=== PATIENT | male | born 1975 | race African-American/Black ===

== ENCOUNTER 2016-04-23 03:41 | Emergency (ER) ==
[2016-04-23] MEDS ORDERED: ATIVAN ONE (03:47)
[2016-04-23] MEDS ORDERED: NORCURON ONE (03:48)
[2016-04-23] MEDS ORDERED: VERSED ONE (03:48)
[2016-04-23] MEDS ORDERED: STERILE WATER INJ. ONE (03:49)
[2016-04-23] MEDS: DIPRIVAN 1% 100 ML IV SCH ×7 (03:50→06:49)
--- NOTE | 2016-04-23 03:55 | PROVIDER DOCUMENTATION ---
HPI-Neurological Disorder - General Source: EMS - History of Present Illness-Neuro Onset/Duration: reports: unsure Timing: reports: still present Context: reports: found unresponsive by family, seizure activity Character of Altered Mental Status: reports: unresponsive, seizure activity Associated Symptoms: reports: muscle spasms, seizures Similar Symptoms Previously?: Yes - Seizure First time to have a seizure?: No Witnessed seizure?: No Episode details: reports: unknown duration, unknown number Episode Frequency: chronic episodes Status Epilepticus: Yes Character of Seizure: reports: generalized shaking all over, staring, incontinent of urine, incontinent of stool <Kashif Rice - Last Filed: 04/23/16 04:03> <Tyson Rodarte - Last Filed: 04/23/16 20:16> - General Chief Complaint: Seizure Stated Complaint: seizure Time Seen by Provider: 04/23/16 03:41 Allergies/Adverse Reactions: Patient Allergies Allergy/AdvReac Type Severity Reaction Status Date / Time iodine Allergy Severe RASH Verified 04/23/16 04:24 shellfish derived Allergy Unknown Verified 04/23/16 04:24 Home Medications: Ketorolac [Toradol] 10 mg PO Q6H PRN 04/23/16 Lacosamide [Vimpat] 200 mg PO HS 04/23/16 Lisinopril/Hydrochlorothiazide [Lisinopril-Hctz 20-12.5 mg Tab] 1 each PO DAILY 04/23/16 Tizanidine HCl [Zanaflex] 4 mg PO Q6H 04/23/16 - History of Present Illness-Neuro Nature of Presenting Problem: Pt is a 40 yom who presents to ER via EMS with CC of seizure like activities. Per EMS, pt's found pt in bed having a seizure. Pt was unresponsive, convulsing, and rigid and was found incontinent of stool and urine. Pt has hx of seizures, and does not know what time pt started having these symptoms tonight. (Kashif Rice) Review of Systems - Adult - REVIEW OF SYSTEMS - ADULT ROS:: unobtainable per condition Constitutional: reports: no symptoms reported Eyes: reports: no symptoms reported Ears, Nose, Mouth & Throat: reports: no symptoms reported Cardiovascular: reports: no symptoms reported Respiratory: reports: no symptoms reported Gastrointestinal: reports: no symptoms reported Genitourinary: reports: no symptoms reported Musculoskeletal: reports: no symptoms reported Integumentary: reports: no symptoms reported Neurological: reports: no symptoms reported Psychiatric: reports: no symptoms reported Endocrine: reports: no symptoms reported Hematologic/Lymphatic: reports: no symptoms reported Allergic/Immunologic: reports: no symptoms reported All Other Systems: Reviewed and Negative <Kashif Rice - Last Filed: 04/23/16 04:03> Past History - Adult - PAST MEDICAL HISTORY-ADULT Review of Records: reports: Nursing Assessment Review, Medications Reviewed Neurological: reports: headaches/migraines, past injury, Seizures/Epilepsy, spinal cord/brain injury (brain) - PRIOR SURGERIES/PROCEDURES Surgical/Procedure History: reports: other (brain surgery) - IMMUNIZATION STATUS Childhood Immunizations: See Nurse Assessment Flu Vaccine: See Nurse Assessment <Kashif Rice - Last Filed: 04/23/16 04:03> Physical Exam- Neurological - Physical Exam-Neuro Initial Vital Signs Reviewed: Yes General Appearance: severe distress Integumentary: diaphoresis <Kashif Rice - Last Filed: 04/23/16 04:03> - Physical Exam-Neuro General Appearance: other (unresponsive, actively seizing with leftward gaze) Eye Exam: bilateral eye: PERRL HENMT: moist mucous membranes Head Injury: no evidence of injury Neck: supple Respiratory: decreased breath sounds, other (breath sounds equal) Cardiovascular: tachycardia Abdominal Exam: soft Extremity: other (no deformities) Neurologic: other (nonfocal) Integumentary: normal turgor - Glascow Coma Scale Best Eye Response: (1) no response Best Verbal Response: (1) no verbal response Best Motor Response: (1) no motor response Total Glascow Score: 3 <Tyson Rodarte - Last Filed: 04/23/16 20:16> Progress <Kashif Rice - Last Filed: 04/23/16 04:03> - CT/MRI 1 CT Study: Head (anoxic brain injury with diffuse edema, no bleed) <Tyson Rodarte - Last Filed: 04/23/16 20:16> - PLAN OF CARE/RESULTS Progress/Plan/Lab Results: Laboratory Results - last 24 hr 04/23/16 04/23/16 04/23/16 03:40 03:40 03:40 WBC 19.08 H RBC 5.00 Hgb 14.3 Hct 42.3 MCV 84.6 MCH 28.6 MCHC 33.8 RDW Std Deviation 13.8 Plt Count 346 MPV 10.3 Immature Gran % (Auto) 0.4 Neut % (Auto) 63.6 Lymph % (Auto) 26.4 [place] % (Auto) 9.0 Eos % (Auto) 0.5 Baso % (Auto) 0.1 Immature Gran # (Auto) 0.07 H Neut # (Auto) 12.15 H Lymph # (Auto) 5.04 H [place] # (Auto) 1.71 H Eos # (Auto) 0.09 Baso # (Auto) 0.02 Specimen Type Sample Site pH pCO2 pO2 HCO3 Base Excess Oxyhemoglobin ABG O2 Sat (Calculated) ABG O2 Saturation ABG Carboxyhemoglobin ABG Methemoglobin Rush Test A-a O2 Difference Total Hemoglobin Lactate Blood Gas Modality Spontaneous Rate FiO2 % Tidal Volume PEEP Sodium 143 Potassium 3.6 Chloride 102 Carbon Dioxide 26 Anion Gap 15 BUN 14 Creatinine 1.1 Estimated GFR/1.73 m2 > 60 BUN/Creatinine Ratio 13 Glucose 177 H POC Glucose Calculated Osmolality 290 Calcium 9.0 Magnesium 1.8 Total Bilirubin 0.29 AST 22 ALT 10 Alkaline Phosphatase 64 Total Protein 7.3 Albumin 4.2 Globulin 3.1 Albumin/Globulin Ratio 1.4 Urine Source Urine Color Urine Turbidity Urine pH Ur Specific [place] Urine Protein Ur Glucose (Stick) Ur Ketones (Stick) Urine Blood Urine Nitrite Urine Bilirubin Urobilinogen Dipstick Urine Leukocytes Urine WBC (Auto) Urine RBC (Auto) U Epithel Cells (Auto) Urine Bacteria (Auto) Urine Opiates Screen Ur Oxycodone Screen Ur Methadone, Qual Ur Barbiturates Screen Ur Phencyclidine Scrn Ur Amphetamines Screen U Benzodiazepines Scrn Urine Cocaine Screen U Cannabinoids Screen Plasma/Serum Ethyl Alc 04/23/16 04/23/16 04/23/16 03:40 03:40 04:00 WBC RBC Hgb Hct MCV MCH MCHC RDW Std Deviation Plt Count MPV Immature Gran % (Auto) Neut % (Auto) Lymph % (Auto) [place] % (Auto) Eos % (Auto) Baso % (Auto) Immature Gran # (Auto) Neut # (Auto) Lymph # (Auto) [place] # (Auto) Eos # (Auto) Baso # (Auto) Specimen Type Sample Site pH pCO2 pO2 HCO3 Base Excess Oxyhemoglobin ABG O2 Sat (Calculated) ABG O2 Saturation ABG Carboxyhemoglobin ABG Methemoglobin Rush Test A-a O2 Difference Total Hemoglobin Lactate Blood Gas Modality Spontaneous Rate FiO2 % Tidal Volume PEEP Sodium Potassium Chloride Carbon Dioxide Anion Gap BUN Creatinine Estimated GFR/1.73 m2 BUN/Creatinine Ratio Glucose POC Glucose 127 H Calculated Osmolality Calcium Magnesium Total Bilirubin AST ALT Alkaline Phosphatase Total Protein Albumin Globulin Albumin/Globulin Ratio Urine Source CATH Urine Color YELLOW Urine Turbidity CLEAR Urine pH 6.0 Ur Specific [place] 1.016 Urine Protein TRACE A Ur Glucose (Stick) NEGATIVE Ur Ketones (Stick) NEGATIVE Urine Blood TRACE A Urine Nitrite NEGATIVE Urine Bilirubin NEGATIVE Urobilinogen Dipstick NORMAL Urine Leukocytes TRACE A Urine WBC (Auto) <10 Urine RBC (Auto) <10 U Epithel Cells (Auto) <10 Urine Bacteria (Auto) NEGATIVE Urine Opiates Screen NONE DETECTED Ur Oxycodone Screen NONE DETECTED Ur Methadone, Qual NONE DETECTED Ur Barbiturates Screen NONE DETECTED Ur Phencyclidine Scrn NONE DETECTED Ur Amphetamines Screen NONE DETECTED U Benzodiazepines Scrn NONE DETECTED Urine Cocaine Screen NONE DETECTED U Cannabinoids Screen PRESUMPTIVE POSITIVE A Plasma/Serum Ethyl Alc 04/23/16 04:56 WBC RBC Hgb Hct MCV MCH MCHC RDW Std Deviation Plt Count MPV Immature Gran % (Auto) Neut % (Auto) Lymph % (Auto) [place] % (Auto) Eos % (Auto) Baso % (Auto) Immature Gran # (Auto) Neut # (Auto) Lymph # (Auto) [place] # (Auto) Eos # (Auto) Baso # (Auto) Specimen Type ARTERIAL Sample Site R RADIAL pH 7.33 L pCO2 48 H pO2 146 H HCO3 24.0 Base Excess -1.1 Oxyhemoglobin 95.2 ABG O2 Sat (Calculated) 17.0 ABG O2 Saturation 96.1 ABG Carboxyhemoglobin 0.90 ABG Methemoglobin 0.0 Rush Test YES A-a O2 Difference 222.0 Total Hemoglobin 12.5 Lactate 0.50 Blood Gas Modality VENTILATOR Spontaneous Rate 14 FiO2 % 60.0 Tidal Volume 550 PEEP 5.0 Sodium Potassium Chloride Carbon Dioxide Anion Gap BUN Creatinine Estimated GFR/1.73 m2 BUN/Creatinine Ratio Glucose POC Glucose Calculated Osmolality Calcium Magnesium Total Bilirubin AST ALT Alkaline Phosphatase Total Protein Albumin Globulin Albumin/Globulin Ratio Urine Source Urine Color Urine Turbidity Urine pH Ur Specific [place] Urine Protein Ur Glucose (Stick) Ur Ketones (Stick) Urine Blood Urine Nitrite Urine Bilirubin Urobilinogen Dipstick Urine Leukocytes Urine WBC (Auto) Urine RBC (Auto) U Epithel Cells (Auto) Urine Bacteria (Auto) Urine Opiates Screen Ur Oxycodone Screen Ur Methadone, Qual Ur Barbiturates Screen Ur Phencyclidine Scrn Ur Amphetamines Screen U Benzodiazepines Scrn Urine Cocaine Screen U Cannabinoids Screen Plasma/Serum Ethyl Alc (Tyson Rodarte) Procedures - INTUBATION Airway Evaluation: Copious Secretions Mallampati Class: 2 Intubation Method: orotracheal Equipment: ETT, Bougie Tube Size (cm): 7.5 Pretreated with 100% Oxygen?: Yes Breath Sounds after Intubation: equal ETT Primary Tube Confirmation: Capnometry CO2 Change, Direct Visualization, Chest Rise and Fall, Tube placement verified on XRAY Intubation Complications: no complications Vent Settings: See Respiratory Therapy Notes <Tyson Rodarte - Last Filed: 04/23/16 20:16> Departure <Kashif Rice - Last Filed: 04/23/16 04:03> - Departure Time of Disposition Order: 06:45 Certified Medical Emergency: Emergent - Critical Care Note Total Time (mins): 145 Critical Care Statement: This patient required my direct personal management to treat or rule out processes, the absence of which, could potentiallly result in sudden, clinically significant life or limb threatening deterioration. <Tyson Rodarte - Last Filed: 04/23/16 20:16> - Departure DIAGNOSIS: Status epilepticus, Anoxic brain damage, Brain edema Disposition: [facility] Condition: Critical Referrals: None,PCP [Primary Care Provider] - Attestation - Scribe Verification/Attestation Scribe:: Kashif Rice Acting as Scribe for:: Tyson Rodarte Scribe documention review:: This chart was documented by a scribe and accurately reflects the service the provider performed and the decisions made by the provider. <Kashif Rice - Last Filed: 04/23/16 04:03> Physician Attestation
[2016-04-23] MEDS ORDERED: KEPPRA 1,000 MG in NS 100 ML IV ONE (04:01)
[2016-04-23] MEDS ORDERED: DIPRIVAN 1% 100 ML ONE (04:01)
[2016-04-23] MEDS ORDERED: DIPRIVAN 1% IV ONE (04:02)
[2016-04-23] MEDS ORDERED: NORCURON IV ONE ×2 (04:07→04:21)
[2016-04-23] MEDS ORDERED: NS 1,000 ML ONE (04:10)
[2016-04-23] MEDS ORDERED: VERSED IV ONE ×2 (04:21→05:23)
[2016-04-23] MEDS ORDERED: ATIVAN IV ONE ×2 (04:22)
[2016-04-23 04:26] LABS: MANUAL DIFF NEEDED? NO; URINE MICRO REVIEW NEEDED? NO; URINE SOURCE CATH
[2016-04-23 04:38] LABS: BILIRUBIN URINE NEGATIVE (NEGATIVE); BLOOD URINE TRACE (NEGATIVE); COLOR YELLOW; GLUCOSE URINE NEGATIVE (NEGATIVE); LEUKOCYTES URINE TRACE (NEGATIVE); NITRITE URINE NEGATIVE (NEGATIVE); PROTEIN URINE TRACE mg/dL (NEGATIVE); SP GRAVITY URINE 1.016; TURBIDITY URINE CLEAR (CLEAR); UROBILINOGEN URINE NORMAL (NORMAL)
[2016-04-23 04:39] LABS: UR EPITHELIAL CELLS <10 /HPF (<10); URINE BACTERIA NEGATIVE /HPF; URINE CULTURE NEEDED? YES; URINE RBC <10 /HPF (<10); URINE WBC <10 /HPF (<10)
[2016-04-23 04:42] LABS: BASO% 0.1 % (0.0-0.8); EOS# 0.09 X1000 (0.0-0.7); EOS% 0.5 % (0.0-10.0); HEMATOCRIT 42.3 % (42.0-52.0); HEMOGLOBIN 14.3 g/dL (14.0-18.0); IMM GRAN# 0.07 X1000 (0.0-0.04); IMM GRAN% 0.4 % (0.0-0.5); LYMPH# 5.04 X1000 (1.2-3.4); LYMPH% 26.4 % (20.5-51.1); MCH 28.6 PG (27-31); MCHC 33.8 g/dL (33-37); MCV 84.6 FL (81-99); MONO# 1.71 X1000 (0.11-0.59); MPV 10.3 FL (7.4-10.4); NEUT% 63.6 % (42.2-75.2); PLT 346 X1000 (130-400)
[2016-04-23 04:57] LABS: AGAP 15; ALBUMIN 4.2 g/dL (3.5-5.0); ALKALINE PHOSPHATASE 64 U/L (32-122); BUN 14 mg/dL (8-22); CHLORIDE 102 mmol/L (98-107); COSMO 290; GOT 22 U/L (10-34); GPT 10 U/L (10-44); MAGNESIUM 1.8 mg/dL (1.5-2.7); POTASSIUM 3.6 mmol/L (3.5-5.1); SODIUM 143 mmol/L (136-145); TCO2 26 mmol/L (25-35); TOTAL BILIRUBIN 0.29 mg/dL (0.20-1.00); TOTAL PROTEIN 7.3 g/dL (6.3-8.3)
[2016-04-23 04:59] LABS: ALLEN TEST YES; BE -1.1 mmoll (-3.0-3.0); BLOOD TYPE ARTERIAL; DRAW SITE R RADIAL; PCO2(98.6) 48 mmHg (35-45); PO2(98.6) 146 mmHg (60-100); SAMPLE BLOOD; SAO2 96.1 % (95.0-100.0); SRATE 14 BPM; THB 12.5 g/dL (11.5-17.4); TVOL 550 mL; pH(98.6) 7.33 (7.35-7.45)
[2016-04-23 05:00] LABS: MODALITY VENTILATOR
[2016-04-23 05:08] LABS: UR AMPHETAMINES QUAL NONE DETECTED (NONE DETECT); UR BARBITUATES QUAL NONE DETECTED (NONE DETECT); UR BENZODIAZEPIN QUAL NONE DETECTED (NONE DETECT); UR CANNABINOIDS QUAL PRESUMPTIVE POSITIVE (NONE DETECT); UR COCAINE QUAL NONE DETECTED (NONE DETECT); UR METHADONE QUAL NONE DETECTED (NONE DETECT); UR OPIATES QUAL NONE DETECTED (NONE DETECT); UR OXYCODONE QUAL NONE DETECTED (NONE DETECT); UR PCP QUAL NONE DETECTED (NONE DETECT)
[2016-04-23 05:47] VITALS: BP 124/81
--- NOTE | 2016-04-23 10:45 | Diag Imaging Result Document ---
PROCEDURE NAME: HEAD W/O CONTRAST - 04/23/2016 CT HEAD WITHOUT CONTRAST: COMPARISON: 11/19/2015. FINDINGS: There is bifrontal encephalomalacia underlying a craniotomy defect, stable. There is no discrete intracranial mass, mass effect, or intracranial hemorrhage. There is no evidence of hydrocephalus. There is nothing by CT that would suggest cerebral edema when compared to the previous study. There is no evidence of acute infarct. There are paranasal sinus air-fluid levels, assumed to be related to recent intubation. Surrounding soft tissues and bony structures are essentially unremarkable, otherwise. IMPRESSION: Stable chronic changes as described with no definite acute intracranial pathology by CT.
--- NOTE | 2016-04-23 11:44 | Diag Imaging Result Document ---
PROCEDURE NAME: CHEST-PORTABLE - 04/23/2016 SINGLE FRONTAL RADIOGRAPH OF THE CHEST: COMPARISON: 11/19/2015. FINDINGS: There is a newly placed ET tube. The tip projects over the trachea and above the y[place] at approximately the T3 level. The lungs are grossly clear, otherwise. There is no definite pleural fluid collection. Cardiac silhouette and central vasculature are grossly unremarkable. IMPRESSION: Placement of ET tube as described. No definite acute pathology, otherwise.
--- NOTE | 2016-04-23 11:56 | Diag Imaging Result Document ---
PROCEDURE NAME: CHEST/ABD TUBE PLACEMENT - 04/23/2016 SINGLE FRONTAL RADIOGRAPH OF THE LOWER CHEST AND UPPER ABDOMEN: COMPARISON: Chest radiograph dated 04/23/2016. FINDINGS: There has been interval placement of an NG tube. The tip projects below the diaphragm and is assumed to be in lumen of the stomach in expected position. Limited views of the chest are grossly stable when compared to the very recent radiograph. IMPRESSION: Interval placement of NG tube as described. [facility]
--- NOTE | 2016-04-25 06:18 | EKG Report ---
Test Performed on : 04/23/2016 03:45:14 AM Test Reason : SEIZURE Blood Pressure : / mmHG Vent. Rate : 086 BPM Atrial Rate : 086 BPM P-R Int : 116 ms QRS Dur : 100 ms QT Int : 340 ms P-R-T Axes : 020 054 012 degrees QTc Int : 406 ms Sinus rhythm. with premature supraventricular complexes. and with occasional premature ventricular co mplexes. Possible Inferior infarct (cited on or before 23-APR-2016) Abnormal ECG When compared with ECG of 23-APR-2016 03:44, (Unconfirmed) Previous ECG has undetermined rhythm, needs review Questionable change in initial forces of Inferior leads ST now depressed in Lateral leads Unconfirmed Result
== END 2016-04-23 06:47 | disposition short-term general hospital (02) ==
LOC: ED 03:41
DX: G40.901 Epilepsy, unspecified, not intractable, with status epilepticus (principal); G93.1 Anoxic brain damage, not elsewhere classified; G93.6 Cerebral edema; M62.838 Other muscle spasm; R32 Unspecified urinary incontinence; R00.0 Tachycardia, unspecified; Z79.899 Other long term (current) drug therapy
CPT/HCPCS: 70450; 71010; 74000; 80053; 81001; 82805; 82948; 83735; 85025; 87070; 87077; 87088; 87186; 87205; 93005; 96374; 96375; 96376; G0480; J1953; J2060; J2250; J7030

== ENCOUNTER 2016-08-16 22:16 | Inpatient (IN) ==
[2016-08-16] MEDS ORDERED: NS 1,000 ML ONE (22:17)
[2016-08-16] MEDS ORDERED: KEPPRA 1,000 MG in NS 100 ML IV ONE (22:25)
[2016-08-16 22:34] LABS: MANUAL DIFF NEEDED? NO
[2016-08-16] MEDS ORDERED: ATIVAN ONE (22:34)
[2016-08-16 22:43] LABS: BASO% 0.3 % (0.0-0.8); EOS# 0.14 X1000 (0.0-0.7); EOS% 2.3 % (0.0-10.0); HEMATOCRIT 40.9 % (42.0-52.0); LYMPH# 3.13 X1000 (1.2-3.4); LYMPH% 52.5 % (20.5-51.1); MCH 29.2 PG (27-31); MCHC 34.2 g/dL (33-37); MCV 85.4 FL (81-99); MONO# 0.51 X1000 (0.11-0.59); MONO% 8.6 % (1.7-9.3); MPV 10.2 FL (7.4-10.4); NEUT% 36.3 % (42.2-75.2); PLT 222 X1000 (130-400); RBC 4.79 XMIL (4.7-6.1)
[2016-08-16] MEDS ORDERED: NS 1,000 ML IV ONE (22:43)
[2016-08-16] MEDS ORDERED: ATIVAN IV ONE (22:51)
[2016-08-16 22:52] LABS: AGAP 11; ALBUMIN 3.8 g/dL (3.5-5.0); ALKALINE PHOSPHATASE 50 U/L (32-122); BUN 11 mg/dL (8-22); CHLORIDE 107 mmol/L (98-107); COSMO 284; GOT 27 U/L (10-34); GPT 15 U/L (10-44); POTASSIUM 4.4 mmol/L (3.5-5.1); SODIUM 143 mmol/L (136-145); TCO2 25 mmol/L (25-35); TOTAL BILIRUBIN 0.17 mg/dL (0.20-1.00); TOTAL PROTEIN 6.3 g/dL (6.3-8.3)
--- NOTE | 2016-08-17 00:26 | PROVIDER DOCUMENTATION ---
This chart was entered by Jessie Lin Scribe, acting as scribe for David Ward MD. HPI-Neurological Disorder - General Chief Complaint: Seizure Stated Complaint: seizure Time Seen by Provider: 08/16/16 22:22 Source: EMS Allergies/Adverse Reactions: Patient Allergies Allergy/AdvReac Type Severity Reaction Status Date / Time iodine Allergy Severe RASH Verified 08/16/16 22:51 shellfish derived Allergy Unknown Verified 08/16/16 22:51 Home Medications: Home Medication List Medication Instructions Recorded Confirmed Last Taken Type Divalproex E.r. [Depakote ER] 1,000 mg PO BID #0 tablet 10/09/14 08/16/16 20:00 Rx Levetiracetam [Keppra] 1,500 mg PO BID #0 tablet 10/09/14 08/16/16 11/18/15 20: 00 Rx Lacosamide [Vimpat] 200 mg PO HS 04/23/16 08/16/16 Unknown History Lisinopril/Hydrochlorothiazide 1 each PO DAILY 04/23/16 08/16/16 Unknown History [Lisinopril-Hctz 20-12.5 mg Tab] Tizanidine HCl [Zanaflex] 4 mg PO Q6H 04/23/16 08/16/16 Unknown History - History of Present Illness-Neuro Nature of Presenting Problem: 41 Y/O M presents to ED with Seizure. Pt was brought in by EMS. EMS states that he has a hx of seizure as stated by family, and didn't take meds today. Family states he had a 5 min seizure at home, and EMS states he had a 3 min seizure on arrival to ED.Medical noncompliance, combative in ED. Valium given by EMS. Severity: reports: severe Onset/Duration: reports: this evening Timing: reports: still present Context: reports: seizure activity Character of Altered Mental Status: reports: combative Any recent trauma/injury?: reports: none New weakness or altered sensation location:: reports: none Gait Baseline: walks without assistance Associated Symptoms: reports: seizures Similar Symptoms Previously?: Yes - Seizure First time to have a seizure?: No Witnessed seizure?: Yes How many seizure episodes?: 2 Duration of episode? (mins): 8 (in total 5 mins at home and 3 mins in ED ) Episode Frequency: chronic episodes Preceding symptoms/context:: missed recent doses of seizure meds Character of Seizure: reports: generalized shaking all over Post-ictal Symptoms: reports: other (combative) Seizure related injury: none Review of Systems - Adult - REVIEW OF SYSTEMS - ADULT Constitutional: denies: chills, fever Eyes: reports: no symptoms reported Ears, Nose, Mouth & Throat: reports: no symptoms reported Cardiovascular: reports: no symptoms reported Respiratory: reports: no symptoms reported Gastrointestinal: reports: no symptoms reported Genitourinary: reports: no symptoms reported Musculoskeletal: reports: no symptoms reported Integumentary: reports: no symptoms reported Neurological: reports: seizure. denies: dizziness/vertigo Psychiatric: reports: no symptoms reported Endocrine: reports: no symptoms reported Hematologic/Lymphatic: reports: no symptoms reported Allergic/Immunologic: reports: no symptoms reported All Other Systems: Reviewed and Negative Past History - Adult - PAST MEDICAL HISTORY-ADULT Review of Records: reports: Old Records Reviewed, Nursing Assessment Review, Medications Reviewed, Social history reviewed & non-contributory. Major Childhood Illnesses: reports: denies history Cardiovascular: reports: denies history Respiratory: reports: denies history Gastrointestinal: reports: denies history Obstetrical/Gynecological: reports: denies history Genitourinary: reports: denies history Musculoskeletal: reports: denies history Neurological: reports: headaches/migraines, past injury, Seizures/Epilepsy, spinal cord/brain injury (brain) Endocrine/Immune: reports: denies history Other Conditions: reports: denies history - PRIOR SURGERIES/PROCEDURES Surgical/Procedure History: reports: other (brain surgery) - PRIOR HOSPITALIZATIONS Prior Hospitalizations: reports: none - IMMUNIZATION STATUS Childhood Immunizations: See Nurse Assessment Flu Vaccine: See Nurse Assessment - FAMILY HISTORY Family History: reviewed, not pertinent - SOCIAL HISTORY Smoking: non-smoker Living Situation: family Physical Exam- Neurological - Physical Exam-Neuro General Appearance: no apparent distress, combative Eye Exam: bilateral eye: normal inspection, PERRL, EOMI HENMT: normocephalic/atraumatic, moist mucous membranes, normal ENT inspection, TMs normal, pharynx normal Head Injury: no evidence of injury Neck: non-tender, full range of motion, supple, normal inspection Respiratory: chest non-tender, lungs clear, normal breath sounds Cardiovascular: normal peripheral pulses, regular rate, rhythm Abdominal Exam: normal bowel sounds, non tender, soft Lymphatic: no adenopathy Extremity: normal range of motion beet flumer Exam: normal hearing, PERRL Motor/Sensory: no motor deficit, no sensory deficit, no pronator drift Neurologic: beet flumer II-XII nml as tested Integumentary: normal color, normal turgor, warm/dry Psych/Mental Status: normal mood/affect, normal thought content, normal thought process, oriented x 3 Progress - PLAN OF CARE/RESULTS Progress/Plan/Lab Results: Vital Signs - 8 hr 08/16/16 22:28 08/17/16 00:14 Temperature 97.5 F L Pulse Rate 61 61 Respiratory Rate 14 15 Blood Pressure 137/85 122/77 O2 Sat by Pulse Oximetry 99 100 Laboratory Results - last 24 hr 08/16/16 08/16/16 08/16/16 22:15 22:15 22:15 WBC 5.96 RBC 4.79 Hgb 14.0 Hct 40.9 L MCV 85.4 MCH 29.2 MCHC 34.2 RDW Std Deviation 14.2 Plt Count 222 MPV 10.2 Immature Gran % (Auto) 0.0 Neut % (Auto) 36.3 L Lymph % (Auto) 52.5 H [place] % (Auto) 8.6 Eos % (Auto) 2.3 Baso % (Auto) 0.3 Immature Gran # (Auto) 0.00 Neut # (Auto) 2.16 Lymph # (Auto) 3.13 [place] # (Auto) 0.51 Eos # (Auto) 0.14 Baso # (Auto) 0.02 Sodium 143 Potassium 4.4 Chloride 107 Carbon Dioxide 25 Anion Gap 11 BUN 11 Creatinine 1.0 Estimated GFR/1.73 m2 > 60 BUN/Creatinine Ratio 11 Glucose 87 Calculated Osmolality 284 Calcium 9.0 Magnesium 2.0 Total Bilirubin 0.17 L AST 27 ALT 15 Alkaline Phosphatase 50 Total Protein 6.3 Albumin 3.8 Globulin 2.5 Albumin/Globulin Ratio 1.5 Plasma/Serum Ethyl Alc Orders Category Date Time Status Finger Stick Blood Sugar (ED) DIRECTED Care 08/16/16 22:27 Active Saline Loc DIRECTED Care 08/16/16 22:27 Active ALCOHOL BLOOD Stat Lab 08/16/16 22:15 Completed CBC WITH ELECTRONIC DIFF [HEME] Stat Lab 08/16/16 22:15 Completed COMPREHENSIVE METABOLIC PANEL [CHEM] Stat Lab 08/16/16 22:15 Completed MAGNESIUM [CHEM] Stat Lab 08/16/16 22:15 Completed URINALYSIS W/POSS RFLX CULT-1 [URINALYSIS] Stat Lab 08/16/16 22:27 Uncollected URINE DRUG SCREEN Stat Lab 08/16/16 22:27 Uncollected 0.9% Sodium Chloride Inj [Ns] 1,000 ml Med 08/16/16 22:17 Discontinued .ROUTE As Directed 0.9% Sodium Chloride Inj [Ns] 1,000 ml Med 08/16/16 22:43 Discontinued IV 999 mls/hr Levetiracetam [Keppra] 1,000 mg Med 08/16/16 22:25 Discontinued 0.9% Sodium Chloride Inj [Ns] 100 ml IV NOW Lorazepam [Ativan] Med 08/16/16 22:34 Discontinued 2 mg .ROUTE .STK-MED ONE Lorazepam [Ativan] Med 08/16/16 22:51 Discontinued 2 mg IV NOW ONE Pulse Oximetry Stat Oth 08/16/16 22:27 Active Result Diagrams: 08/16/16 22:15 08/16/16 22:15 - REASSESSMENT Reassessment #1 Time Reassessed: 00:06 Status: improving Reassessment Comment: having clear and coherent conversation Departure - Departure Time of Disposition Decision: 00:26 DIAGNOSIS: Seizure disorder Disposition: ADMITTED INPATIENT 09 Certified Medical Emergency: Emergent Condition: Stable Referrals and Follow-Ups: None,PCP [Primary Care Provider] - - Critical Care Note This patient required my direct & personal management of CC.: Yes This chart was documented by the indicated scribe, (Jessie Lin Scribe) and accurately reflects the services I performed and decisions made by me, David Ward MD, as attested by the provider's signature.
--- NOTE | 2016-08-17 02:30 | HISTORY AND PHYSICAL ---
PRIMARY CARE PROVIDER: Dr. Owens, in [place]. CHIEF COMPLAINT: Seizures. HISTORY OF PRESENTING ILLNESS: This is a 41-year-old male, with a longstanding history of seizures, secondary to meningioma, had presented to the emergency department apparently after having a seizure. Patient states he remembers helping his cousin move some stuff, then he does not recall what happened. The patient a bit postictal. He was given Ativan in the ER, and Keppra, and due to his presenting symptoms, he will need hospitalization for further management. At the time of my examination, he was able to deny any fevers, chills, chest pain, shortness of breath, hemoptysis, melena or weight changes. PAST MEDICAL HISTORY: Includes seizures, meningioma. PAST SURGICAL HISTORY: Brain surgery. ALLERGIES: To shellfish and iodine. CURRENT MEDICATIONS: As listed in the MAR. SOCIAL HISTORY: He denies any history of smoking, alcohol or illicit drug use. FAMILY HISTORY: Positive for coronary disease in mother. REVIEW OF SYSTEMS: Twelve point review of systems is as in HPI, but is limited. All other systems are negative. PHYSICAL EXAMINATION: GENERAL: The patient is moderately confused now. VITAL SIGNS: Temperature 97.5, pulse is 86, respirations 14, blood pressure 122 /81. HEENT: Atraumatic, normocephalic. Extraocular movements intact. PERRLA. NECK: No masses. CHEST: Clear to auscultation. CARDIOVASCULAR: Regular rate and rhythm. ABDOMEN: Soft, nontender. Positive bowel sounds. EXTREMITIES: No edema. NEURO: He is awake, alert, oriented x1. : No bladder distention. SKIN: Warm. LABORATORIES AND STUDIES: WBC 5.96, hemoglobin 14, hematocrit 40.9, platelets 222,000. Sodium 140, potassium 4.4. Chloride 107, CO2 of 25, BUN 11, creatinine 1.0, glucose is 87. ASSESSMENT: A 41-year-old male with longstanding history of seizures, that presented to the emergency department after he had an episode of seizures. He was brought to the emergency department, where he was given IV Keppra and Ativan, and he seemed to be stabilized. Due to his presenting symptoms, he will need hospitalization for further management. ASSESSMENT: 1. Seizures. PLAN: 1. We will admit patient to medical floor. 2. Put patient on seizure precautions. 3. We will restart his antiepileptic agents. 4. We will use Ativan p.r.n. for any breakthrough seizures. 5. We will consult Neurology. 6. We will put patient on DVT prophylaxis with SCDs. 7. We will continue to follow and reassess. cc: Andres Santiago MD MTDD
[2016-08-17] MEDS ORDERED: TYLENOL PO PRN (02:39)
[2016-08-17] MEDS ORDERED: ATIVAN IV PRN (02:43)
[2016-08-17] MEDS ORDERED: ZOFRAN PO PRN (02:45)
[2016-08-17] MEDS: NS 1,000 ML IV SCH ×2 (03:30→10:18)
[2016-08-17 04:35] LABS: URINE CULTURE NEEDED? NO; URINE MICRO REVIEW NEEDED? NO; URINE SOURCE CLEAN CATCH
[2016-08-17 04:39] LABS: BILIRUBIN URINE NEGATIVE (NEGATIVE); BLOOD URINE NEGATIVE (NEGATIVE); COLOR YELLOW; GLUCOSE URINE NEGATIVE (NEGATIVE); LEUKOCYTES URINE NEGATIVE (NEGATIVE); NITRITE URINE NEGATIVE (NEGATIVE); PROTEIN URINE NEGATIVE (NEGATIVE); SP GRAVITY URINE 1.022; TURBIDITY URINE CLEAR (CLEAR); UR EPITHELIAL CELLS <10 /HPF (<10); URINE BACTERIA NEGATIVE /HPF; URINE RBC <10 /HPF (<10); URINE WBC <10 /HPF (<10); UROBILINOGEN URINE NORMAL (NORMAL)
[2016-08-17] MEDS: MORPHINE IV PRN ×2 (05:10→17:27)
[2016-08-17 07:26] LABS: MANUAL DIFF NEEDED? NO
[2016-08-17 07:39] LABS: BASO% 0.2 % (0.0-0.8); EOS% 1.7 % (0.0-10.0); HEMATOCRIT 38.9 % (42.0-52.0); HEMOGLOBIN 13.1 g/dL (14.0-18.0); LYMPH# 2.56 X1000 (1.2-3.4); LYMPH% 42.7 % (20.5-51.1); MCH 28.8 PG (27-31); MCHC 33.7 g/dL (33-37); MCV 85.5 FL (81-99); MONO# 0.45 X1000 (0.11-0.59); MONO% 7.5 % (1.7-9.3); MPV 10.2 FL (7.4-10.4); NEUT% 47.9 % (42.2-75.2); PLT 204 X1000 (130-400); RBC 4.55 XMIL (4.7-6.1)
[2016-08-17 08:02] LABS: AGAP 11; BUN 10 mg/dL (8-22); CALCIUM 8.3 mg/dL (8.8-10.2); CHLORIDE 109 mmol/L (98-107); COSMO 285; POTASSIUM 4.4 mmol/L (3.5-5.1); SODIUM 144 mmol/L (136-145); TCO2 24 mmol/L (25-35)
--- NOTE | 2016-08-17 09:53 | CONSULTATION ---
DATE OF CONSULTATION: 08/17/2016 HISTORY OF PRESENT ILLNESS: Mr. Blevins is 41 years old. There is report of another recent seizure prompting emergency room visit and admission. This morning, Mr. Blevins told me he was not aware of recent seizure. He is certain that he did not miss any medication doses. He could not tell me his seizure medicine regimen. Initially, he told me that he took Depakote and Vimpat, and then later said that he took Keppra but believes he only takes 2 different drugs. Initially, he told me he took 2 pills in the morning and 3 at night, and then told me he took all of his medicine once a day. The admission note indicates home medicine list of levetiracetam 1500 mg b.i.d., Vimpat 200 mg at bedtime, extended release divalproex 1000 mg b.i.d. I saw him here in November, 9 months ago, and regimen then was same levetiracetam 1500 mg b.i.d. and same divalproex 1000 mg b.i.d., but lacosamide reported 150 mg b.i.d. then. Mr. Blevisn told me today that he does not remember having any recent medication dose changes. His treating neurologist is in [place] and he is not certain when he last saw his [place] neurologist. Review of previous records shows a history of seizures associated with meningioma which was managed surgically in 2007. He has been afebrile here. Chemistry profile here is unremarkable. We do not have serum drug levels reported yet this admission. In the past, I think that it has been clear, at least some of the time, that seizures were associated with missing medication doses, but I am not certain missing doses has been established as the reason for breakthrough seizures every time he has had seizure in recent years. I do not think that there has been clear focal feature with the postictal state in the past. PHYSICAL EXAMINATION: On exam now, he is awake, alert, attentive. Speech is not dysarthric. He seems appropriate. He had some trouble with following commands requiring right/ left distinction and digit distinction. He did well on bedside testing for naming and repeating. He has good power in the limbs. He did well on [id number] testing. Visual tavarez full , tested grossly by confrontational finger counting. Neck is supple without meningismus. IMPRESSION: Longstanding seizure disorder, apparent recent seizure, uncertain explanation for recent seizure. He may have missed some medicine doses. I think we can empirically make his Vimpat dose 200 mg twice a day, continue levetiracetam 1500 mg twice a day, continue divalproex 1000 mg twice a day. He has had some doses of medicines since admission and I do not know that checking serum levels now will provide helpful information. I encouraged him to be careful with activities, to refrain from driving, to take his medicines as directed, and to keep followup with his neurologist in [place]. Thanks for asking me to see Mr. Blevins again. cc: Rory Landers III, MD MTDBrenda
[2016-08-17] MEDS: VIMPAT PO SCH ×2 (10:18→22:11)
[2016-08-17] MEDS: KEPPRA PO SCH ×2 (10:18→22:08)
[2016-08-17] MEDS: DEPAKOTE PO SCH ×2 (10:19→22:08)
[2016-08-17] MEDS ORDERED: KEPPRA 500 MG in NS 100 ML IV SCH (11:00)
--- NOTE | 2016-08-17 12:47 | PROGRESS NOTE ---
DATE: 08/17/2016 SUBJECTIVE: Mr. Blevins was admitted early this morning. He apparently had a seizure. He sees Dr. Ricky Nelson in [place]. A 41-year-old with a longstanding history of seizure secondary to meningioma, presented to the emergency department apparently after having a seizure. States he remembers having his cousin move some stuff and then he does not recall what happened. The patient appears postictal. Given some Ativan in the ER and Keppra. At the time of hospitalization he denied any fever, chills, shortness of breath, or hemoptysis. PAST MEDICAL HISTORY: Includes seizures, meningioma. ALLERGIES: He is allergic to shellfish and iodine. OBJECTIVE: General: He is sleeping soundly at the present time. Able to arouse. Oriented x3. Vital signs: Temp 98.8 degrees, pulse 60, respirations 18, blood pressure 121/77. HEENT: Pupils are equal. Neck: CVP less than 6 cm. Lungs: Clear in all lung tavarez. Cardiovascular: Regular rhythm and rate without murmur or S3. LABORATORY: Hematocrit 38, white blood cell count 6,000, platelet count 204,000. Sodium 144, potassium 4.4, chloride 109, BUN 10, creatinine 1.0, magnesium 2.0. Liver functions unremarkable. Urinalysis unremarkable. Dr. Landers consulted. ASSESSMENT AND PLAN: 1. Long-standing seizure disorder. Apparently recent seizure. I do not have a good explanation for the recent seizure. He may have missed some medicine doses. I think Dr. Landers is going to make his Vimpat dose 200 mg twice a day. Continue her levetiracetam 1500 mg twice a day. Continue divalproex 1000 mg twice a day. He is sleepy right now. 2. History of meningioma, aware. Review of his labs are unremarkable. He did not present with much of an acidosis. Renal function looks good. I think he is still lethargic, postictal. REVIEW OF HIS ORDERS: He is on levetiracetam 1500 mg b.i.d., Ativan 1 mg IV q.6 hours p.r.n. He is getting morphine for pain. He was complaining of pain in his knee but I do not think we will add anything new to his pain medicine. He is getting Vimpat 200 mg b.i.d., Depakote 1000 mg b.i.d., and fluids right now running normal saline at 125 mL an hour. cc: Rush Chairez MD
[2016-08-18] MEDS: NS 1,000 ML IV SCH ×4 (03:56→19:43)
--- NOTE | 2016-08-18 07:28 | PROGRESS NOTE ---
DATE: 08/18/2016 SUBJECTIVE: Mr. Blevins feels a little bit better. He had a pretty good night. He is sleeping comfortably. He was able to arouse. He is eating well. He had no further sign of seizures. OBJECTIVE: Temperature 98.3 degrees, pulse 55, respirations 20, blood pressure 126/71. Lungs are clear in all lung tavarez. Cardiovascular: Regular rhythm and rate without murmur or S3. Good urine output; over 3 L. LABORATORY DATA: White count 6000, hematocrit 38, platelet count 204,000. Chemistry: Sodium 144, potassium 4.4, chloride 109, bicarb 24. BUN 10, creatinine 1.02. ASSESSMENT AND PLAN: 1. Long-standing seizure disorder. Apparently recurrent seizure. I have adjusted medications. No further sign of seizure activity. I thought we would watch him today. If clear, he possibly could go home tomorrow. 2. He has a history of meningioma, aware. cc: Rush Chairez MD
--- NOTE | 2016-08-18 07:58 | PROGRESS NOTE ---
DATE: 08/18/2016 SUBJECTIVE: Mr. Blevins reports no further seizure episodes. He told me again that his neurologist's is in [place]. I told him that he had reported, or family had reported to others this admission that his treating neurologist is in [place] now. He told me then that the doctor is in [place]. When I asked him later, he told me that this doctor is in [place]. Again, he cannot give me a consistent answer regarding his pre-admission seizure medication regimen. I encouraged him to take his medicines as directed, to make sure he has good supervision with his medicines, and to keep followup with his treating neurologist. He has been seizure-free here and I do not think we need to make any other changes now. Thanks for asking me to see Mr. Blevins again. cc: Rory Landers III, MD
[2016-08-18] MEDS: VIMPAT PO SCH ×2 (09:46→20:42)
[2016-08-18] MEDS: KEPPRA PO SCH ×2 (09:46→20:42)
[2016-08-18] MEDS: DEPAKOTE PO SCH ×2 (09:46→20:42)
[2016-08-19] MEDS: NS 1,000 ML IV SCH (04:14)
[2016-08-19 07:46] VITALS: BP 125/69
--- NOTE | 2016-08-19 08:48 | PROGRESS NOTE ---
DATE: 08/19/2016 SUBJECTIVE: Mr. Blevins has not had any more seizures. This morning, he seems a little bit brighter, still inconsistent with his history. He could not tell me the name or city for his treating neurologist, and he cannot tell me his medication doses. He told me that his mother supervised his medicines closely at home. He believes that he had a seizure several months ago associated with "overdoing it" helping a friend unload heavy bags of feed. He thinks this recent seizure may have been triggered by "overdoing it" with physical exercise. I encouraged him to stay well hydrated, to try not to "overdo it" physically, to take his medicines correctly, to continue close supervision of medicines, and to keep followup with his treating neurologist. cc: Rory Landers III, MD MTDD
[2016-08-19] MEDS: KEPPRA PO SCH (09:01)
[2016-08-19] MEDS: DEPAKOTE PO SCH (09:01)
[2016-08-19] MEDS: VIMPAT PO SCH (09:01)
--- NOTE | 2016-08-19 16:53 | DISCHARGE SUMMARY ---
ADMISSION DATE: 08/17/2016 DISCHARGE DATE: 08/19/2016 CONSULTATIONS: Rory Landers III, MD. PERTINENT PROCEDURES: None. DISCHARGE DIAGNOSES: 1. Longstanding seizure disorder with apparent recent seizures. Uncertain explanation for the recent seizures, however, patient reports they are usually brought on by "overdoing it." The patient's medications have been adjusted, he has been without a seizure and he has been educated to stay well-hydrated, try not to overdo it physically, to take his medicines correctly, continue with close supervision of his medications and continue to follow up with his treating neurologist. Stable. 2. Meningioma. Aware. HOSPITAL COURSE: Mr. Blevins is a 41-year-old male with a longstanding history of seizures secondary to meningioma. He presented to the ED after having a seizure. The patient stated he remembered helping his cousin move some things and then he did not recall what happened. The patient was postictal. He was given Ativan in the ED as well as Keppra. The patient was admitted to the medical floor and placed on seizure precautions, restarting his antiepileptic agents, p.r.n. Ativan for breakthrough seizures as well as a Neurology consultation. The patient was evaluated by Neurology. He has been encouraged to take his medicines as directed, to stay well- hydrated, and not to do any type of activity that overexerts him to keep him seizure free. The patient remained seizure free while in the hospital. He has also been encouraged to continue to follow up with his treating neurologist. The patient is appropriate for discharge home today. VITAL SIGNS ON DISCHARGE: Temperature is 97.7 degrees, heart rate 51, respirations 18, blood pressure 125/69, O2 is 100% on room air. DISCHARGE DIET: Regular. DISCHARGE MEDICATIONS: 1. Depakote 1000 mg p.o. b.i.d. 2. Vimpat 200 mg p.o. b.i.d. 3. Keppra 1500 mg p.o. b.i.d. 4. Lisinopril/hydrochlorothiazide 20/12.5 mg tablet 1 each p.o. daily. 5. Zanaflex 4 mg p.o. q.6 hours. FOLLOWUP: 1. Patient is being discharged home. 2. He will need to continue to follow up with his treating neurologist for which the patient was not able to recall his name. He will need to obtain a PCP from a list that has been provided to him as well as continue taking his seizure medications as prescribed, staying hydrated and not overly physically exerting himself. 3. The patient can return to the ED for any worsening of symptoms. DISCHARGE TIME: 30 minutes. Dictated by JUS Stevens for Colt Young MD cc: Colt Young MD
== END 2016-08-19 13:23 | disposition home or self-care (01) ==
LOC: ED 22:16 → 3N 08-17 03:12 → SUATTDRO 08-17 03:12
PROVIDERS: ATTEND Internal Medicine

== ENCOUNTER 2016-11-13 17:28 | Inpatient (IN) ==
[2016-11-13] MEDS ORDERED: ATIVAN IV ONE ×2 (17:29→17:40)
[2016-11-13] MEDS ORDERED: KEPPRA 500 MG in NS 100 ML IV ONE (17:30)
[2016-11-13] MEDS ORDERED: NS 2,000 ML ONE (17:35)
[2016-11-13] MEDS ORDERED: NS 1,000 ML IV ONE (17:39)
[2016-11-13] MEDS ORDERED: ATIVAN ONE (17:43)
[2016-11-13 18:02] LABS: ALLEN TEST YES; BE -0.7 mmoll (-3.0-3.0); BLOOD TYPE ARTERIAL; DRAW SITE L RADIAL; METHB 0.9 % (0.0-1.5); O2(CT) 18.9 mL/dL (15.0-23.0); PO2(98.6) 231 mmHg (60-100); SAMPLE BLOOD; SAO2 100.5 % (95.0-100.0); THB 13.6 g/dL (11.5-17.4); pH(98.6) 7.23 (7.35-7.45)
[2016-11-13 18:03] LABS: MODALITY NRB
[2016-11-13 18:05] LABS: PCO2(98.6) 68 mmHg (35-45)
[2016-11-13 18:08] LABS: MANUAL DIFF NEEDED? NO
[2016-11-13 18:11] LABS: BASO% 0.2 % (0.0-0.8); EOS# 0.13 X1000 (0.0-0.7); EOS% 1.1 % (0.0-10.0); HEMATOCRIT 42.9 % (42.0-52.0); HEMOGLOBIN 14.5 g/dL (14.0-18.0); LYMPH# 4.64 X1000 (1.2-3.4); LYMPH% 39.7 % (20.5-51.1); MCHC 33.8 g/dL (33-37); MCV 88.8 FL (81-99); MONO# 0.69 X1000 (0.11-0.59); MONO% 5.9 % (1.7-9.3); MPV 10.2 FL (7.4-10.4); NEUT% 53.1 % (42.2-75.2); PLT 263 X1000 (130-400); RBC 4.83 XMIL (4.7-6.1)
--- NOTE | 2016-11-13 18:11 | PROVIDER DOCUMENTATION ---
This chart was entered by Faye Christiansen Scribe, acting as scribe for Soto Estes MD. HPI-Neurological Disorder - General Source: patient - History of Present Illness-Neuro Severity: reports: mild Onset/Duration: reports: just prior to arrival Timing: reports: still present Context: reports: seizure activity Character of Altered Mental Status: reports: disoriented - Seizure First time to have a seizure?: No Witnessed seizure?: Yes <Soto Estes - Last Filed: 11/13/16 18:13> - General Source: patient, EMS <Tien JamesElia - Last Filed: 11/13/16 18:59> - General Stated Complaint: seizures Time Seen by Provider: 11/13/16 17:28 Allergies/Adverse Reactions: Patient Allergies Allergy/AdvReac Type Severity Reaction Status Date / Time iodine Allergy Severe RASH Verified 08/16/16 22:51 shellfish derived Allergy Unknown Verified 08/16/16 22:51 Home Medications: Home Medication List Medication Instructions Recorded Confirmed Last Taken Type Divalproex E.r. [Depakote ER] 1,000 mg PO BID #0 tablet 10/09/14 08/16/16 20:00 Rx Levetiracetam [Keppra] 1,500 mg PO BID #0 tablet 10/09/14 08/16/16 11/18/15 20: 00 Rx Lisinopril/Hydrochlorothiazide 1 each PO DAILY 04/23/16 08/16/16 Unknown History [Lisinopril-Hctz 20-12.5 mg Tab] Tizanidine HCl [Zanaflex] 4 mg PO Q6H 04/23/16 08/16/16 Unknown History Divalproex [Depakote] 1,000 mg PO BID #120 tablet 08/19/16 Unknown Rx Lacosamide [Vimpat] 200 mg PO BID #120 tablet 08/19/16 Unknown Rx Levetiracetam [Keppra] 1,500 mg PO BID #120 tablet 08/19/16 Unknown Rx Review of Systems - Adult - REVIEW OF SYSTEMS - ADULT ROS:: unobtainable per condition <Soto Estes - Last Filed: 11/13/16 18:13> - REVIEW OF SYSTEMS - ADULT ROS:: unobtainable per condition Constitutional: denies: fever <Tien James - Last Filed: 11/13/16 18:59> Past History - Adult - PAST MEDICAL HISTORY-ADULT Review of Records: reports: Old Records Reviewed, Nursing Assessment Review Major Childhood Illnesses: reports: denies history Cardiovascular: reports: denies history Respiratory: reports: denies history Gastrointestinal: reports: denies history Obstetrical/Gynecological: reports: denies history Genitourinary: reports: denies history Musculoskeletal: reports: denies history Neurological: reports: headaches/migraines, past injury, Seizures/Epilepsy, spinal cord/brain injury (brain) Endocrine/Immune: reports: denies history Other Conditions: reports: denies history - PRIOR SURGERIES/PROCEDURES Surgical/Procedure History: reports: other (brain surgery) - PRIOR HOSPITALIZATIONS Prior Hospitalizations: reports: none - IMMUNIZATION STATUS Childhood Immunizations: See Nurse Assessment Flu Vaccine: See Nurse Assessment - FAMILY HISTORY Family History: reviewed, not pertinent <Soto Estes - Last Filed: 11/13/16 18:13> - PAST MEDICAL HISTORY-ADULT Review of Records: reports: Old Records Reviewed, Nursing Assessment Review, Medications Reviewed, Social history reviewed & non-contributory. <Tien James - Last Filed: 11/13/16 18:59> Physical Exam- Neurological - Physical Exam-Neuro Initial Vital Signs Reviewed: Yes General Appearance: severe distress, other (pt actively seizing on exam, head is turned to the left, facial twitching intermittently) HENMT: normocephalic/atraumatic, moist mucous membranes Neck: limited range of motion Respiratory: lungs clear, normal breath sounds, other (upper airway noise) Abdominal Exam: normal bowel sounds Extremity: no pedal edema Motor/Sensory: other (unable) Neurologic: other (unable) Integumentary: normal color, normal turgor Psych/Mental Status: other (seizing intermittently) <Soto Estes - Last Filed: 11/13/16 18:13> - Physical Exam-Neuro Initial Vital Signs Reviewed: Yes General Appearance: severe distress, other <Tien James - Last Filed: 11/13/16 18:59> Progress - PLAN OF CARE/RESULTS Result Diagrams: 11/13/16 17:31 - CHANGE OF SHIFT REPORT (ED Provider) Report Given and Care Transferred to:: Kayla Time of Transfer: 18:10 Items Pending: Labs, Other <Soto Estes - Last Filed: 11/13/16 18:13> - PLAN OF CARE/RESULTS Result Diagrams: 11/13/16 17:31 11/13/16 17:31 <Tien James - Last Filed: 11/13/16 18:59> - PLAN OF CARE/RESULTS Progress/Plan/Lab Results: Vital Signs - 8 hr 11/13/16 18:00 11/13/16 18:43 Temperature 98.6 F Pulse Rate 101 H 73 Respiratory Rate 22 18 Blood Pressure 114/75 109/71 O2 Sat by Pulse Oximetry 99 100 Laboratory Results - last 24 hr 11/13/16 11/13/16 11/13/16 17:31 17:31 18:00 WBC 11.68 H RBC 4.83 Hgb 14.5 Hct 42.9 MCV 88.8 MCH 30.0 MCHC 33.8 RDW Std Deviation 14.3 Plt Count 263 MPV 10.2 Neut % (Auto) 53.1 Lymph % (Auto) 39.7 Andrews % (Auto) 5.9 Eos % (Auto) 1.1 Baso % (Auto) 0.2 Neut # (Auto) 6.20 Lymph # (Auto) 4.64 H Andrews # (Auto) 0.69 H Eos # (Auto) 0.13 Baso # (Auto) 0.02 Specimen Type ARTERIAL Sample Site L RADIAL pH 7.23 L pCO2 68 H* pO2 231 H HCO3 24.4 Base Excess -0.7 Oxyhemoglobin 96.4 ABG O2 Sat (Calculated) 18.9 ABG O2 Saturation 100.5 H ABG Carboxyhemoglobin 3.20 H ABG Methemoglobin 0.9 Rush Test YES A-a O2 Difference 397.0 Total Hemoglobin 13.6 Lactate 0.60 Blood Gas Modality NRB FiO2 % 100.0 Sodium 142 Potassium 4.1 Chloride 103 Carbon Dioxide 29 Anion Gap 10 BUN 12 Creatinine 1.1 Estimated GFR/1.73 m2 > 60 BUN/Creatinine Ratio 11 Glucose 144 H Calculated Osmolality 285 Calcium 9.2 Orders Category Date Time Status Use Oxygen.Protocol ORDERED Care 11/13/16 17:30 Active ABG [RESP] Routine Lab 11/13/16 18:00 Completed BMP [BASIC METABOLIC PANEL] [CHEM] Stat Lab 11/13/16 17:31 Completed CBC WITH ELECTRONIC DIFF [HEME] Stat Lab 11/13/16 17:31 Completed Depakote [VALPROIC ACID] [TDM] Stat Lab 11/13/16 18:22 Ordered KEPPRA [LASSITER] Stat Lab 11/13/16 18:21 Ordered 0.9% Sodium Chloride Inj [Ns] 1,000 ml Med 11/13/16 17:35 Discontinued .ROUTE As Directed 0.9% Sodium Chloride Inj [Ns] 1,000 ml Med 11/13/16 17:39 Discontinued IV 999 mls/hr Levetiracetam [Keppra] 500 mg Med 11/13/16 17:30 Discontinued 0.9% Sodium Chloride Inj [Ns] 100 ml IV NOW Lorazepam [Ativan] Med 11/13/16 17:43 Discontinued 2 mg .ROUTE .STK-MED ONE Lorazepam [Ativan] Med 11/13/16 17:29 Discontinued 2 mg IV NOW ONE Lorazepam [Ativan] Med 11/13/16 17:40 Discontinued 2 mg IV NOW ONE Suction Therapy Stat Oth 11/13/16 17:30 Active 1815 Patient had received 4mg ativan IV here and it was reported that he received 10mg valium en route. His Levirmictam is running in. Still hving intermittent seizure (Soto Estes) Departure <Soto Estes - Last Filed: 11/13/16 18:13> - Departure Date of Disposition Decision: 11/13/16 Time of Disposition Decision: 18:59 Certified Medical Emergency: Emergent - Critical Care Note This patient required my direct & personal management of CC.: Yes Total Time (mins): 30 Critical Care Statement: This patient required my direct personal management to treat or rule out processes, the absence of which, could potentiallly result in sudden, clinically significant life or limb threatening deterioration. <Tien James - Last Filed: 11/13/16 18:59> - Departure DIAGNOSIS: Status epilepticus Disposition: ADMITTED INPATIENT 09 Condition: Fair Referrals and Follow-Ups: None,PCP [Primary Care Provider] - This chart was documented by the indicated scribe, (Faye Christiansen, Bhavana) and accurately reflects the services I performed and decisions made by me, Soto Estes MD, as attested by the provider's signature.
[2016-11-13 18:27] LABS: AGAP 10; BUN 12 mg/dL (8-22); CALCIUM 9.2 mg/dL (8.8-10.2); CHLORIDE 103 mmol/L (98-107); COSMO 285; POTASSIUM 4.1 mmol/L (3.5-5.1); SODIUM 142 mmol/L (136-145); TCO2 29 mmol/L (25-35)
[2016-11-13 19:39] LABS: URINE CULTURE NEEDED? NO; URINE MICRO REVIEW NEEDED? NO; URINE SOURCE CATH
[2016-11-13 19:53] LABS: BILIRUBIN URINE NEGATIVE (NEGATIVE); BLOOD URINE NEGATIVE (NEGATIVE); COLOR YELLOW; GLUCOSE URINE NEGATIVE (NEGATIVE); LEUKOCYTES URINE NEGATIVE (NEGATIVE); NITRITE URINE NEGATIVE (NEGATIVE); PH URINE 5.5; PROTEIN URINE TRACE mg/dL (NEGATIVE); SP GRAVITY URINE 1.022; TURBIDITY URINE CLEAR (CLEAR); UROBILINOGEN URINE NORMAL (NORMAL)
[2016-11-13 19:57] LABS: UR AMPHETAMINES QUAL NONE DETECTED (NONE DETECT); UR BARBITUATES QUAL NONE DETECTED (NONE DETECT); UR BENZODIAZEPIN QUAL NONE DETECTED (NONE DETECT); UR CANNABINOIDS QUAL PRESUMPTIVE POSITIVE (NONE DETECT); UR COCAINE QUAL NONE DETECTED (NONE DETECT); UR EPITHELIAL CELLS <10 /HPF (<10); UR METHADONE QUAL NONE DETECTED (NONE DETECT); UR OPIATES QUAL NONE DETECTED (NONE DETECT); UR OXYCODONE QUAL NONE DETECTED (NONE DETECT); UR PCP QUAL NONE DETECTED (NONE DETECT); URINE BACTERIA NEGATIVE /HPF; URINE RBC <10 /HPF (<10); URINE WBC <10 /HPF (<10)
[2016-11-13] MEDS ORDERED: ATIVAN IV PRN (20:10)
[2016-11-13] MEDS ORDERED: KEPPRA 1,000 MG in NS 100 ML IV ONE (20:10)
--- NOTE | 2016-11-13 20:54 | HISTORY AND PHYSICAL ---
PRIMARY CARE PHYSICIAN: Dr. Livingston in [place]. CHIEF COMPLAINT: Seizures. HISTORY OF PRESENT ILLNESS: This is a 41-year-old male with a past medical history of recurrent seizures, who had multiple visits to the ER for this condition. He was admitted here actually at the beginning of August this year and also in November last year on. Since 2013 he has had 10 visits to the ER for seizures. The patient is sedated because of the Ativan he received. All information has been taken from the ER physician. Apparently, this patient had a seizure at home, so ambulance was sent to the home and en route to the hospital he received Valium 10 mg IV. While he was here he had another episode of seizure so he received Ativan 2 and at this time the patient is sleeping. The patient will be admitted to the hospital for further evaluation and treatment. On checking his medication, his bottles of medications, the Keppra has been refill in September and it is for 1 month and there is, of course, still pills in there and also the Depakote that was filled in July still has Depakote in it. Apparently the problem for seizures at this time apparently is for noncompliance with medication. PAST MEDICAL HISTORY: Seizure disorder. Patient had a fall from horse and on CT of head it revealed a meningioma so he had brain surgery. PAST SURGICAL HISTORY: Brain surgery. ALLERGIES: Patient is allergic to iodine and shellfish. SOCIAL HISTORY: As per previous records, he does not drink alcohol, smoke tobacco, or using illicit drugs. FAMILY HISTORY: As per previous records, positive for coronary artery disease. REVIEW OF SYSTEMS: Not possible to obtain because of the clinical situation of the patient. PHYSICAL EXAMINATION: VITAL SIGNS: Temperature 98.6 degrees, heart rate 72, respiratory rate 18, blood pressure 109/71, O2 saturation 100% on room air. GENERAL: This is a 41-year-old male, lying in bed, in no acute distress. HEENT: Head is normocephalic, atraumatic. Pupils equal, round, reactive to light and accommodation. NECK: Supple. No JVD noted. No carotid bruits. No lymphadenopathy. No thyromegaly. CARDIOVASCULAR: S1, S2 heard. No murmurs, gallops, or rubs. Regular rate and rhythm. RESPIRATORY: Clear bilaterally to auscultation. No work of breathing or using accessory muscles. ABDOMEN: Soft. Bowel sounds present. No organomegaly. EXTREMITIES: No clubbing, cyanosis, or edema. Peripheral pulses present in both legs. NEUROLOGICAL: The patient is postictal. Does not answer any questions or follow commands. Moves 4 extremities spontaneously. LABORATORY DATA: White cell count 11.68 with normal hemoglobin. ABG shows pH of 7.33 with pCO2 of 68. BMP is unremarkable. Urinalysis is normal. UDS positive for marijuana. IMPRESSION AND PLAN: 1. Recurrent seizures. This patient has been here in the hospital visiting the ER many time and also he was admitted twice over the last 2 years for recurrent seizures. At this time apparently because of those bottles of his medication still have pills in them makes me think definitely that this could be noncompliance with medication. Of course, patient is not able to answer any questions right now. From the ER, both Keppra and Depakote levels have been ordered already. We will see what it shows. Considering that he has a history of meningioma and although this is a benign tumor but considering also his history of recurrent seizures, I prefer at this time to do an MRI with contrast to see if there is any structural abnormality of the brain that could justify these recurrent seizures. Will also consult Dr. Landers from neurology. Will provide in this case Keppra same dose 1500 mg b.i.d. IV this time because the patient is not able to take any pills right now. We will also continue with Depakote; that will be given to him when he is awake. Also, will do Ativan 1-2 mg IV q.2 hours p.r.n. for seizures. We will start DVT prophylaxis on this patient. Will send this patient to [facility] for close watching. Further recommendations to follow according to the clinical situation of the patient. cc: Lg Hunt MD MTDBrenda
[2016-11-13] MEDS ORDERED: ZOFRAN IV PRN (22:27)
[2016-11-13] MEDS ORDERED: SODIUM CHLORIDE 0.9% INJ SCH (22:27)
[2016-11-13] MEDS: SODIUM CHLORIDE 0.9% INJ SCH (23:21)
[2016-11-13] MEDS: NEXIUM IV SCH (23:21)
[2016-11-13] MEDS: LOVENOX SUBQ SCH (23:21)
[2016-11-13] MEDS: NS 1,000 ML IV SCH (23:22)
[2016-11-14 05:30] LABS: MANUAL DIFF NEEDED? NO
[2016-11-14 05:45] LABS: BASO% 0.1 % (0.0-0.8); EOS# 0.03 X1000 (0.0-0.7); EOS% 0.3 % (0.0-10.0); HEMATOCRIT 38.9 % (42.0-52.0); HEMOGLOBIN 13.1 g/dL (14.0-18.0); LYMPH# 2.52 X1000 (1.2-3.4); LYMPH% 26.1 % (20.5-51.1); MCH 29.5 PG (27-31); MCHC 33.7 g/dL (33-37); MCV 87.6 FL (81-99); MONO# 0.76 X1000 (0.11-0.59); MONO% 7.9 % (1.7-9.3); MPV 9.9 FL (7.4-10.4); NEUT% 65.6 % (42.2-75.2); PLT 220 X1000 (130-400); RBC 4.44 XMIL (4.7-6.1)
[2016-11-14] MEDS: NS 1,000 ML IV SCH ×2 (05:52→15:31)
[2016-11-14 05:58] LABS: AGAP 8; BUN 11 mg/dL (8-22); CHLORIDE 104 mmol/L (98-107); COSMO 281; POTASSIUM 4.6 mmol/L (3.5-5.1); SODIUM 141 mmol/L (136-145); TCO2 29 mmol/L (25-35)
[2016-11-14] MEDS: KEPPRA 1,500 MG in NS 100 ML IV SCH ×2 (08:24→21:47)
[2016-11-14] MEDS ORDERED: DEPAKOTE ER PO SCH (09:00)
--- NOTE | 2016-11-14 09:20 | PROGRESS NOTE ---
DATE: 11/14/2016 SUBJECTIVE: Mr. Blevins had more tonic-clonic seizures or grand mal seizures yesterday. He states that he has been taking his medication fairly regularly. He is sleepy with a little bit of a headache today. He has some family at the bedside and friends. PHYSICAL EXAMINATION: Vital Signs: Temperature 98.7 degrees, pulse 54, respirations 16, blood pressure 120/60. Lungs: Clear in all lung tavarez. Cardiovascular Examination: Regular rhythm and rate without murmur or S3. Abdomen: Soft. Skin: Is warm and dry. Is and Os: His weight was 210. Urine output was 1600 mL. DIAGNOSTIC DATA: Review of his labs and electrolytes are really unremarkable. No acidosis. Blood gases when he presented, he had a little acidosis. PH was 7.23, pCO2 68, PO2 was 231. That was on 100% FiO2. ASSESSMENT AND PLAN: Recurrent seizures. The patient has been in the hospital many times. Also admitted 2 years ago with recurrent seizures. He has a bottle of medication with pills in it but he states that he has been compliant to his medicine. He is both on Keppra and Depakote. At the present time, getting intravenous Keppra. He is getting 1500 mg twice a day. He was loaded with 1500 mg yesterday. He also used lorazepam and initially used some Valium. Dr. Rory Landers was consulted. We will see if there are any suggestions, if we want to repeat an EEG. Apparently, he has had a meningioma and a surgical resection by report. We will continue present course. cc: Rush Chairez MD
--- NOTE | 2016-11-14 10:51 | Diag Imaging Result Doc PS360 ---
MRI BRAIN W/O CONTRAST - 11/14/2016 INDICATION: recurrent seizures, history of previous surgical aneurysm repair COMPARISON: Head CT 04/23/2016 FINDINGS: The patient refused intravenous contrast. There is no restricted diffusion. No intracranial mass or hemorrhage. Stable encephalomalacia at the inferior, medial frontal lobes bilaterally right greater than left. The optic nerves and chiasm appear grossly unremarkable. The pituitary is atrophic but otherwise normal. No areas of abnormal signal otherwise. IMPRESSION: Stable chronic changes as described above. No acute abnormality. Electronically signed by Dhaval Murray 11/14/2016 10:49 AM
[2016-11-14] MEDS: VIMPAT PO SCH ×2 (15:32→21:48)
--- NOTE | 2016-11-14 17:05 | CONSULTATION ---
DATE OF CONSULTATION: 11/14/2016 REASON FOR CONSULTATION: The patient is seen in consultation at the request of Dr. Miller for evaluation of seizures. HISTORY OF PRESENT ILLNESS: This is a 41-year-old male with history of meningioma status post surgical removal in 2007, longstanding history of seizures who was admitted yesterday for recurrent seizures. He was last here for seizures in August of this year and prior to that was in November. He apparently had a seizure at home and again in route to the hospital when he received Valium 10 mg IV. While in the emergency room he had another event so he received 2 mg of Ativan and was admitted to the hospital. He is confused currently. I called his mother for more history. She says that she is concerned that he may not be taking his medications correctly although the patient says that he is. She says that she thinks that he has been reducing the doses. His medication bottles were reviewed on admission and it showed that Keppra was refilled in September for 1 month and there were pills in the bottle still and the Depakote was filled in July and still had pills. There is concern for medication noncompliance. Reviewing the old records shows that he should have been on lacosamide 200 mg twice a day at least since his last discharge here from the hospital. His mom does confirm that he is taking lacosamide but she does not know the doses of any of the medications and again she thinks that he has been reducing the doses. PAST MEDICAL HISTORY: Meningioma status post surgical removal, seizures, he did fall from a horse and hit his head many years ago. SOCIAL HISTORY: Denies alcohol or tobacco or illicit drugs though his urine toxicology was positive for cannabinoids on admission. The mom reports that he is and he has recently obtained a new girlfriend. FAMILY HISTORY: Positive for coronary disease. No seizures. ALLERGIES: To iodine and shellfish. REVIEW OF SYSTEMS: Is unable to be adequately obtained due to the patient's confusion. Vital signs stable and reviewed in the chart. He is supine in bed completely covered in blankets. He is asleep. Neck supple. No meningismus. No increased work of breathing; normal chest rise and expansion. Intact distal pulses, no edema. Abdomen soft, NTND. Extremities well perfused with no edema. Skin intact without lesion or rash. He arouses to verbal stimulation. He is confused. He knows he is in [place] but does not realize he is in the hospital until he looks around. He knows the president. He says the year is 2074. He is trying to explain some story that is not readily understandable. PERRL. Conjugate gaze. Ocular movements intact. Face symmetric with equal activation. He is moving all of his extremities equally. No weakness observed. He has a difficult time following some complex commands. He gets frustrated and gets up to the bathroom after I leave the room and you can hear items falling onto the ground. DIAGNOSTICS: Noncontrasted brain MRI was personally reviewed. It does show encephalomalacia in the inferomedial frontal lobes bilaterally. Otherwise there is no acute abnormality. The patient did refuse contrast per documentation. White count was 11.7 on admission, now normalized today. Sodium 141, BUN 11, creatinine 1.1, glucose 102, calcium 9. I do not see a magnesium level though it is ordered for tomorrow's labs. Urinalysis showed trace protein. Urine toxicology was positive for cannabinoids. Valproic acid level 96, high therapeutic range. ASSESSMENT AND PLAN: 41-year-old male with longstanding seizure disorder most likely secondary to meningioma status post resection. There is some concern for medication noncompliance. He appears to at least be taking the valproic acid as the level was high therapeutic but the level of Keppra is pending. I have ordered a lacosamide level. I see magnesium is ordered for tomorrow. Once the lacosamide level has been drawn I will reinitiate lacosamide 200 mg b.i.d. as this is what he was taking at least in August. I have also requested records from [facility] and also Dr. Roman Randolph, who is a neurooncologist there whom the patient says he sees once a year. I believe he is still postictal, but should his confusion continue tomorrow, I will order a routine EEG to be sure we are not missing any subclinical seizures. He should be advised to restrain from using marijuana as this may worsen his seizures. Continue his home doses of the other seizure medications at this time until we have some direction with the levels that result. Thank you for this consultation. Will follow. cc: MD JHONY Renee
[2016-11-14] MEDS: SODIUM CHLORIDE 0.9% INJ SCH (21:48)
[2016-11-14] MEDS: NEXIUM IV SCH (21:48)
[2016-11-14] MEDS: LOVENOX SUBQ SCH (21:48)
[2016-11-14] MEDS: DEPAKOTE ER PO SCH (21:48)
[2016-11-15] MEDS: NS 1,000 ML IV SCH ×4 (01:55→22:14)
[2016-11-15] MEDS: TYLENOL PO PRN ×3 (03:21→20:20)
[2016-11-15 05:10] LABS: MANUAL DIFF NEEDED? NO
[2016-11-15 05:16] LABS: BASO% 0.2 % (0.0-0.8); EOS# 0.07 X1000 (0.0-0.7); EOS% 1.2 % (0.0-10.0); HEMATOCRIT 36.6 % (42.0-52.0); HEMOGLOBIN 12.4 g/dL (14.0-18.0); IMM GRAN# 0.02 X1000 (0.0-0.04); IMM GRAN% 0.3 % (0.0-0.5); LYMPH# 2.76 X1000 (1.2-3.4); LYMPH% 46.2 % (20.5-51.1); MCHC 33.9 g/dL (33-37); MCV 85.7 FL (81-99); MONO# 0.56 X1000 (0.11-0.59); MONO% 9.4 % (1.7-9.3); NEUT% 42.7 % (42.2-75.2); PLT 206 X1000 (130-400); RBC 4.27 XMIL (4.7-6.1)
[2016-11-15 05:47] LABS: AGAP 9; ALBUMIN 3.2 g/dL (3.5-5.0); ALKALINE PHOSPHATASE 40 U/L (32-122); BUN 12 mg/dL (8-22); CALCIUM 8.2 mg/dL (8.8-10.2); CHLORIDE 107 mmol/L (98-107); COSMO 284; GOT 21 U/L (10-34); GPT 8 U/L (10-44); MAGNESIUM 1.6 mg/dL (1.5-2.7); POTASSIUM 3.9 mmol/L (3.5-5.1); SODIUM 143 mmol/L (136-145); TCO2 27 mmol/L (25-35); TOTAL BILIRUBIN 0.26 mg/dL (0.20-1.00); TOTAL PROTEIN 5.7 g/dL (6.3-8.3)
[2016-11-15 05:52] LABS: FREE T4 0.99 ng/dL (0.93-1.70)
--- NOTE | 2016-11-15 07:03 | PROGRESS NOTE ---
DATE: 11/15/2016 SUBJECTIVE: Rested well. Nurses state there was really no confusion. Still complained of a slight headache. He was sleeping and resting comfortably. Breathing comfortably at 6:30 a.m. OBJECTIVE: Vital Signs: Temp 98.6 degrees, pulse 54, respirations 20, blood pressure 122/56. Lungs: Are clear in all lung tavarez. Cardiovascular: Regular rhythm and rate without murmur or S3. Abdomen: Soft. Skin: Is warm and dry. Urine output was 3000 mL. LABORATORIES: From today, white count 5970, hematocrit 36, platelet count 206,000. Sodium 143, potassium 3.9, chloride 107, bicarb 27, BUN 12, creatinine 1.2. Calcium 8.2, albumin was 3.2. ASSESSMENT AND PLAN: Long-standing seizure disorder, most likely secondary to meningioma status post resection. Appreciate Dr. Mccracken's help. Awaiting some records from [facility]. His valproic acid level was high at therapeutic, but the level of Keppra is pending. The thyroid levels looked good. B12 and folate looked good. His magnesium was 1.6. We will probably supplement him some magnesium. The plan is to check an EEG and possibly re-initiate glucosamine. A glucosamine level has been drawn. cc: Rush Chairez MD
[2016-11-15] MEDS: DEPAKOTE ER PO SCH ×2 (08:59→20:21)
[2016-11-15] MEDS: VIMPAT PO SCH ×2 (08:59→20:20)
[2016-11-15] MEDS: KEPPRA 1,500 MG in NS 100 ML IV SCH ×2 (08:59→20:21)
[2016-11-15] MEDS: MAG-OX PO SCH ×2 (08:59→20:21)
--- NOTE | 2016-11-15 17:31 | PROGRESS NOTE ---
DATE: 11/15/2016 SUBJECTIVE: No acute events overnight. No further seizure activity. Nurse reports he has been more alert and conversant, though he is still confused. It is unclear if this may be his baseline at this time. OBJECTIVE: Vital signs: Afebrile. Blood pressure 121/74, pulse 51, respirations 15. General: This is a male patient, asleep in bed with the lights out, and it is dark in the room. Neurologic: He arouses easily to verbal stimulation. He regards he is more interactive. He is oriented to self, to [facility], to hospital, to year. Did not know the month or the date off hand. He did know it was Monday. He knows the president. His naming is intact. Repetition is intact. His language is intact. He does seem to have still some confusion when he talks at times. He is trying to explain his medication regimen to me, but keeps changing the doses. Pupils are equal and reactive sluggishly. Conjugate gaze. Ocular movements are full. Face is symmetric with equal activation. Tongue is midline. Palate elevates symmetrically. Shoulder shrug is full. Motor examination, no drift. He has equal strength in all extremities. Some subtle dysmetria on the right hand. Otherwise, no incoordination uncovered. LABORATORY: His hemoglobin is 12, hematocrit 36. Kidney function intact. LFTs are not elevated. Magnesium 1.6. ASSESSMENT AND PLAN: A 41-year-old male with long-standing seizure disorder, likely secondary to meningioma and resection. There has been concern at this time and in the past for medication noncompliance. It may be that he is just confusing his medications. The valproic acid level was in the high therapeutic range, but the Keppra and lacosamide levels are pending still. I have requested the records from [facility] and Dr. Roman Randolph, the neurooncologist there and those records are not here yet today. He is still confused, although I think he may be better than yesterday, but I will go ahead and order routine EEG given the prolonged confusion. Again he should be advised to restrain from smoking marijuana as this may worsen the seizures. Continue the home doses of his seizure medications. I have increased his Depakote yesterday to the home dose and added the lacosamide yesterday as well after the blood level was drawn. Seizure precautions should be followed and he should not be driving. cc: Marianna Finnegan MD MTDD
[2016-11-15] MEDS: SODIUM CHLORIDE 0.9% INJ SCH (21:14)
[2016-11-15] MEDS: NEXIUM IV SCH (21:14)
[2016-11-15] MEDS: LOVENOX SUBQ SCH (21:14)
[2016-11-16 05:05] LABS: MANUAL DIFF NEEDED? NO
[2016-11-16] MEDS: NS 1,000 ML IV SCH (05:08)
[2016-11-16 05:10] LABS: BASO% 0.2 % (0.0-0.8); EOS# 0.13 X1000 (0.0-0.7); EOS% 2.1 % (0.0-10.0); HEMATOCRIT 36.4 % (42.0-52.0); HEMOGLOBIN 12.4 g/dL (14.0-18.0); IMM GRAN# 0.02 X1000 (0.0-0.04); IMM GRAN% 0.3 % (0.0-0.5); LYMPH% 49.3 % (20.5-51.1); MCHC 34.1 g/dL (33-37); MONO# 0.33 X1000 (0.11-0.59); MONO% 5.4 % (1.7-9.3); MPV 10.1 FL (7.4-10.4); NEUT% 42.7 % (42.2-75.2); PLT 210 X1000 (130-400); RBC 4.28 XMIL (4.7-6.1)
[2016-11-16 05:25] LABS: AGAP 9; BUN 10 mg/dL (8-22); CALCIUM 8.2 mg/dL (8.8-10.2); CHLORIDE 107 mmol/L (98-107); COSMO 282; POTASSIUM 4.1 mmol/L (3.5-5.1); SODIUM 142 mmol/L (136-145); TCO2 26 mmol/L (25-35)
[2016-11-16] MEDS ORDERED: NS 1,000 ML IV SCH (07:07)
--- NOTE | 2016-11-16 07:26 | PROGRESS NOTE ---
DATE: 11/16/2016 SUBJECTIVE: He wants to go home. He had a good night. He does not remember the events that brought him into the hospital. PHYSICAL EXAMINATION: Vital Signs: Temperature is 98.1 degrees, pulse 46, respirations 14, blood pressure 122/72. HEENT: Pupils are equal and round. CVP less than 6 cm. Lungs: Clear in all lung tavarez. Cardiovascular Examination: Regular rhythm and rate without murmur or S3. Abdomen: Soft. Skin: Is warm and dry. Is and Os: Urine output was 4500 mL. LABORATORY DATA: White count 6090, hematocrit 36, platelet count 210,000. Sodium 142, potassium 4.1, chloride 107, BUN 10, creatinine 1.1, calcium 8.2. ASSESSMENT AND PLAN: Long-standing seizure disorder, likely secondary to meningioma resection. His valproic acid level was high therapeutic range. Awaiting on Keppra and lacosamide levels. Had considered doing an EEG. Apparently, that has been canceled. The patient did have some prolonged confusion which appears to be clearing. We had increased the Depakote, added the lacosamide, and will see and talk to Dr. Finnegan about possibly going home when she is ready. cc: Rush Chairez MD
[2016-11-16] MEDS: VIMPAT PO SCH (08:37)
[2016-11-16] MEDS: KEPPRA 1,500 MG in NS 100 ML IV SCH (08:37)
[2016-11-16] MEDS: MAG-OX PO SCH (08:37)
[2016-11-16] MEDS: DEPAKOTE ER PO SCH (08:37)
[2016-11-16] MEDS: TYLENOL PO PRN (08:41)
--- NOTE | 2016-11-16 12:39 | PROGRESS NOTE ---
DATE: 11/16/2016 Mr. Blevins is well known to me with several previous hospitalizations for seizures, generally attributed to noncompliance with his medication regimen. Dr. Marianna Finnegan saw him for neurology this admission. Today, he reports he feels well, completely recovered, ready to go home. He initially told me that he takes Depakote twice a day and Vimpat twice a day, and that he does not take Keppra. We reviewed the medication bottles at his bedside and then he told me that he does take Keppra twice a day and Depakote, but thinks he might have run out of Vimpat. He told me that he used to have another medicine that he took "to help me sleep," but he ran out of that. He cannot tell me whether he ran out of that medicine a few days ago or a few months ago. He cannot tell me the name of that medicine to help him rest. I strongly encouraged him to keep follow up with his treating physicians. We reviewed the [place] law as it pertains to driving and he understands his responsibility. He told me that he does not drive. At this point, I think he can resume the preadmission seizure medicine regimen, keep follow up with Dr. Randolph, his neurologist in [place] and hope he will do well. cc: MD JHONY Arzola III
[2016-11-16 16:36] VITALS: BP 138/55
--- NOTE | 2016-11-16 17:27 | DISCHARGE SUMMARY ---
ADMISSION DATE: 11/13/2016 DISCHARGE DATE: 11/16/2016 HISTORY AND HOSPITAL COURSE: This is a 41-year-old who came in with a recurrent seizure. Past medical history, recurrent seizures, multiple visits to the ER for this condition. Admitted here actually at the beginning of August of this year and also in November of last year. Since 2013 he has had 10 visits to the ER for seizures. Patient sedated because of the Ativan he received. All information taken from the ER physician. Apparently patient had a seizure at home. Ambulance was sent to the home. En route to the hospital he received Valium 10 mg IV. While he was there he had another episode of seizures so received Ativan 2 mg. At this time patient is sleeping. Patient was admitted to the hospital for further evaluation and treatment. On checking medications, his bottles of medications, Keppra had been refilled in September for 1 month and there was, of course, still pills in there. Also Depakote which was filled in July, still has Depakote. He remained a little confused for the next 48 hours, although this improved. He reports taking his medication diligently. Neurology was consulted. Dr. Finnegan evaluated. She sent off for Keppra levels as well as Depakote. Depakote levels appeared to be therapeutic. Apparently he takes Keppra and Vimpat and Depakote. He wants to go home. We are going to get him back on his current medications. He is to follow up with neurology. He reports that he does not drive. He will follow up with Dr. Randolph, neurologist in [place]. We will see if we can get him home. Seizures are most likely from meningioma surgery. cc: Rush Chairez MD
== END 2016-11-16 17:53 | disposition home or self-care (01) ==
LOC: ED 17:28 → SUATTDRO 20:33 → 3S 20:33
PROVIDERS: ATTEND Emergency Medicine